=== PATIENT | male | born 1995 | race Caucasian/White ===

== ENCOUNTER 2019-02-06 21:51 | Emergency (ER) | payer OTHER ==
[~2019-02-06] VITALS: Ht 154.9 cm; Wt 68.2 kg
[2019-02-07] MEDS ORDERED: CLINDAMYCIN HCL 150 MG CAPSULE PO ONE
[2019-02-07] MEDS ORDERED: ACETAMINOPHEN 325 MG TABLET PO ONE
[2019-02-07 00:24] VITALS: BP 129/78
== END 2019-02-07 00:33 | disposition home or self-care (01) ==
LOC: EMS 21:52
DX: J86.9 Pyothorax without fistula (principal); F17.210 Nicotine dependence, cigarettes, uncomplicated; F12.90 Cannabis use, unspecified, uncomplicated; Z88.2 Allergy status to sulfonamides; Z88.1 Allergy status to other antibiotic agents; Z91.040 Latex allergy status